=== PATIENT | male | born 1960 | race Caucasian/White ===

== ENCOUNTER → 2020-05-02 | Outpatient (CLI) | payer BC ==
[~2020-05-02] MED LIST: AMLO1TAB65 PO; AVOD0.5CAP PO; EXEN2VIA SQ; EZET1TAB31 PO; FURO20TA4 PO; HYDR-3583 PO; LVT.05T PO; MTF500T PO
--- NOTE | 2020-05-02 11:58 | Diagnostic Imaging Report ---
INDICATION: Left shoulder pain and swelling COMPARISON: None. FINDINGS: 3 views of the left shoulder were obtained. There is no fracture, dislocation, or other acute bony abnormality identified. The soft tissues appear unremarkable. No radiopaque foreign bodies identified. The visualized portions of the left lung are clear. IMPRESSION: No acute fractures or dislocations of the left shoulder. Dictated by: Dictated on workstation # [id number]
--- NOTE | 2020-05-02 11:58 | Diagnostic Imaging Report ---
INDICATION: Neck pain. Shoulder pain. COMPARISON: None. FINDINGS: Frontal, lateral, and open-mouth radiographic views of the cervical spine were obtained. The cervical spine is seen down to the C7-T1 level on the lateral view. Static alignment is maintained. There is no significant abran or retrolisthesis. There is no evidence of jumped facets. The open-mouth view shows normal C1-C2 alignment. The vertebral body heights are maintained. There is no acute fracture. There are mild multilevel degenerative changes consisting of intervertebral disc height loss with predominant anterior bridging osteophyte formations. The surrounding soft tissue structures are unremarkable. The included portions of the lung apices are clear. IMPRESSION: 1. No acute fracture or dislocation of the cervical spine. 2. Mild multilevel degenerative changes. Dictated by: Dictated on workstation # [id number]
== END ==
LOC: RAD 10:40
PROVIDERS: ATTEND Nurse Practitioner Family
DX: M47.812 Spondylosis without myelopathy or radiculopathy, cervical region (principal); M25.412 Effusion, left shoulder
CPT/HCPCS: 72040; 73030

== ENCOUNTER 2020-06-21 10:55 | Outpatient (RCR) | payer OTHER | END 2020-07-06 09:56 | disposition home or self-care (01) | PROVIDERS: ATTEND Nurse Practitioner Family | DX: M54.2 Cervicalgia (principal); M54.6 Pain in thoracic spine; M25.512 Pain in left shoulder; E11.9 Type 2 diabetes mellitus without complications; Z86.69 Personal history of other diseases of the nervous system and sense organs; Z98.890 Other specified postprocedural states ==

== ENCOUNTER 2022-04-22 05:41 | Outpatient (CLI) | payer OTHER ==
[~2022-04-22] VITALS: Ht 182.9 cm; Wt 120.0 kg
[2022-04-23] MEDS ORDERED: OMG1KC PO (11:36)
[2022-04-23] MEDS ORDERED: HYDR12.56 PO (11:36)
[2022-04-23] MEDS ORDERED: LORA10TA7 PO (11:36)
[2022-04-23] MEDS ORDERED: LOSA100T57 PO (11:36)
[2022-04-23] MEDS ORDERED: DULA3PEN SQ (11:36)
[2022-04-23] MEDS ORDERED: SIMV20TA26 PO (11:36)
[2022-04-23] MEDS ORDERED: ASPI-999 PO (11:36)
[2022-04-23] MEDS ORDERED: COGNIUM (11:36)
[2022-04-23] MEDS ORDERED: VIT1CAPS44 PO (11:36)
[2022-04-23] MEDS ORDERED: EMPA10TA PO (11:36)
== END 2022-04-23 12:38 | disposition home or self-care (01) ==
LOC: PREOP 05:41
PROVIDERS: ATTEND Specialist
DX: Z01.818 Encounter for other preprocedural examination (principal)

== ENCOUNTER 2022-04-26 09:32 | Day surgery (SDC) | payer OTHER ==
[~2022-04-26] VITALS: Ht 182.9 cm; Wt 120.0 kg
[~2022-04-26 09:32] MED LIST changes: +ASPI-999 PO; +COGNIUM; +DULA3PEN SQ; +EMPA10TA PO; +HYDR12.56 PO; +LORA10TA7 PO; +LOSA100T57 PO; +OMG1KC PO; +SIMV20TA26 PO; +VIT1CAPS44 PO
[2022-04-26] MEDS ORDERED: TIMOLOL MALEATE 0.5% 5 ML (TIMOPTIC) BTL OU PRN (10:00)
[2022-04-26] MEDS ORDERED: POVIDONE (BETADINE) OPHTH SOLN 5% 30 ML OP ONE (10:00)
[2022-04-26] MEDS ORDERED: MOXIFLOXACIN OPHTH SOLN 5 MG/ML 0.3 ML SYRINGE OP ONE (10:00)
[2022-04-26] MEDS: TETRACAINE 0.5% OPHTH SOLN 4 ML BTL (SINGLE DOSE ONLY) OU PRN ×4 (10:04→10:22)
[2022-04-26 10:11] VITALS: BP 139/90
[2022-04-26] MEDS: PHENYLEPHRINE 10% OPHTH (NEO-SYN) 5 ML BTL OU SCH ×3 (10:13→10:22)
[2022-04-26] MEDS: TROPICAMIDE 1% OPH SOLN (MYDRIACYL) 15 ML BTL OP SCH ×3 (10:14→10:22)
--- NOTE | 2022-04-26 11:00 | Ophthalmologist Pre-Op Note ---
Pre-Operative Progress Note H&P Reviewed The H&P was reviewed, patient examined and no changes noted. Date H&P Reviewed: Apr 26, 2022 Time H&P Reviewed: 11:00 Pre-Op Dx Cataract, Right Eye ANANDA GAUTHIER MD Apr 26, 2022 11:00
[2022-04-26] MEDS ORDERED: MIDAZOLAM 2 MG/2 ML (VERSED) VIAL ONE (11:04)
--- NOTE | 2022-04-26 11:26 | Ophthalmology Operative Report ---
Cataract, Miotic Pupil PREOPERATIVE DIAGNOSIS: 1. Cataract Right Eye 2. Miotic Pupil POSTOPERATIVE DIAGNOSIS: 1. Cataract Right Eye 2. Miotic Pupil PROCEDURE: 1. Cataract removal and placement of posterior chamber implant, right eye 2. Pupillary expansion with malyugin ring SURGEON: Dirk Gauthier ANESTHESIA: Topical with sedation COMPLICATIONS: None ESTIMATED BLOOD LOSS: Minimal DESCRIPTION OF PROCEDURE: After proper informed consent was obtained, the patient, a 62 male, was taken to the Operating Room and the right eye was anesthetized with Tetracaine. The eye was then prepped and draped in the usual manner. A wire lid speculum was placed. A paracentesis was made at the left hand position. Preservative free lidocaine was injected into anterior chamber followed by viscoelastic. A clear corneal incision was made in the temporal position. The malyugin ring was injected into the anterior chamber and the pupil was dilated. A capsulorrhexis was preformed and the central nuclear and cortical material were removed. The posterior capsule was polished and Ravi 17.5 AU00T0 IOL was placed into the capsular bag. The malyugin ring was removed. The residual viscoelastic was aspirated and the balanced saline solution was injected into the anterior chamber. Moxifloxacin was injected into the anterior chamber. The wound was checked and found to be water tight. The patient tolerated the procedure well without complications. DIRK GAUTHIER MD Apr 26, 2022 11:26
[2022-04-26 11:28] VITALS: BP 143/100
[2022-04-26] MEDS ORDERED: acetaZOLAMIDE ER 500 MG CAP (DIAMOX SEQUELS) PO ONE (11:30)
--- NOTE | 2022-04-26 17:33 | Anesthesia-General Post-Op ---
MAC Patient Condition Mental Status/LOC: Same as Preop Cardiovascular: Satisfactory Nausea/Vomiting: Absent Respiratory: Satisfactory Pain: Controlled Complications: Absent Post Op Complications Complications None Follow Up Care/Instructions Patient Instructions None needed. Anesthesiology Discharge Order Discharge Order Patient is doing well, no complaints, stable vital signs, no apparent adverse anesthesia problems. No complications reported per nursing. LIN NORRIS CRNA Apr 26, 2022 17:33
== END 2022-04-26 11:30 | disposition home or self-care (01) ==
LOC: SDC 09:32
PROVIDERS: ATTEND Specialist
DX: E11.36 Type 2 diabetes mellitus with diabetic cataract (principal); H25.9 Unspecified age-related cataract; H57.03 Miosis; Z79.84 Long term (current) use of oral hypoglycemic drugs; Z79.899 Other long term (current) drug therapy; Z79.82 Long term (current) use of aspirin

== ENCOUNTER 2022-05-07 05:28 | Outpatient (CLI) | payer OTHER | END 2022-05-07 10:48 | LOC: PREOP 05:28 | PROVIDERS: ATTEND Specialist | DX: Z01.818 Encounter for other preprocedural examination (principal); H25.89 Other age-related cataract ==

== ENCOUNTER 2022-05-10 06:08 | Day surgery (SDC) | payer OTHER ==
[~2022-05-10] VITALS: Ht 182.9 cm; Wt 120.0 kg
[2022-05-10] MEDS ORDERED: MOXIFLOXACIN OPHTH SOLN 5 MG/ML 0.3 ML SYRINGE OP ONE (06:15)
[2022-05-10] MEDS ORDERED: POVIDONE (BETADINE) OPHTH SOLN 5% 30 ML OP ONE (06:15)
[2022-05-10] MEDS ORDERED: TIMOLOL MALEATE 0.5% 5 ML (TIMOPTIC) BTL OU PRN (06:15)
[2022-05-10] MEDS: TETRACAINE 0.5% OPHTH SOLN 4 ML BTL (SINGLE DOSE ONLY) OU PRN ×4 (06:16→06:37)
[2022-05-10] MEDS: TROPICAMIDE 1% OPH SOLN (MYDRIACYL) 15 ML BTL OP SCH ×3 (06:24→06:37)
[2022-05-10] MEDS: PHENYLEPHRINE 10% OPHTH (NEO-SYN) 5 ML BTL OU SCH ×3 (06:24→06:37)
[2022-05-10 06:34] VITALS: BP 132/99
[2022-05-10] MEDS ORDERED: MIDAZOLAM 2 MG/2 ML (VERSED) VIAL ONE (06:51)
--- NOTE | 2022-05-10 07:21 | Ophthalmologist Pre-Op Note ---
Pre-Operative Progress Note H&P Reviewed The H&P was reviewed, patient examined and no changes noted. Date H&P Reviewed: May 10, 2022 Time H&P Reviewed: 07:21 Pre-Op Dx Cataract, Left Eye ANANDA GAUTHIER MD May 10, 2022 07:21
--- NOTE | 2022-05-10 07:43 | Ophthalmology Operative Report ---
Cataract, Miotic Pupil PREOPERATIVE DIAGNOSIS: 1. Cataract Left Eye 2. Miotic Pupil POSTOPERATIVE DIAGNOSIS: 1. Cataract Left Eye 2. Miotic Pupil PROCEDURE: 1. Cataract removal and placement of posterior chamber implant, left eye 2. Pupillary expansion with malyugin ring SURGEON: Dirk Gauthier ANESTHESIA: Topical with sedation COMPLICATIONS: None ESTIMATED BLOOD LOSS: Minimal DESCRIPTION OF PROCEDURE: After proper informed consent was obtained, the patient, a 62 male, was taken to the Operating Room and the left eye was anesthetized with Tetracaine. The eye was then prepped and draped in the usual manner. A wire lid speculum was placed. A paracentesis was made at the left hand position. Preservative free lid ocaine was injected into anterior chamber followed by viscoelastic. A clear corneal incision was made in the temporal position. The malyugin ring was injected into the anterior chamber and the pupil was dilated. A capsulorrhexis was preformed and the central nuclear and cortical material were removed. The posterior capsule was polished and Ravi 18.0 AU00T0 IOL was placed into the capsular bag. The myalgian ring was removed. The residual viscoelastic was aspirated and the balanced saline solution was injected into the anterior chamber. Moxifloxacin was injected into the anterior chamber. The wound was checked and found to be water tight. The patient tolerated the procedure well without complications. DIRK GAUTHIER MD May 10, 2022 07:43
[2022-05-10 07:50] VITALS: BP 146/85
[2022-05-10] MEDS ORDERED: acetaZOLAMIDE ER 500 MG CAP (DIAMOX SEQUELS) PO ONE (09:30)
--- NOTE | 2022-05-10 14:44 | Anesthesia-General Post-Op ---
MAC Patient Condition Mental Status/LOC: Same as Preop Cardiovascular: Satisfactory Nausea/Vomiting: Absent Respiratory: Satisfactory Pain: Controlled Complications: Absent Post Op Complications Complications None Follow Up Care/Instructions Patient Instructions None needed. Anesthesiology Discharge Order Discharge Order Patient is doing well, no complaints, stable vital signs, no apparent adverse anesthesia problems. No complications reported per nursing. JOHN FREED CRNA May 10, 2022 14:44
== END 2022-05-10 07:50 | disposition home or self-care (01) ==
LOC: SDC 06:08
PROVIDERS: ATTEND Specialist
DX: H26.9 Unspecified cataract (principal); H57.03 Miosis
CPT/HCPCS: 82947